=== PATIENT | female | born 1985 | race Caucasian/White ===

== ENCOUNTER 2019-05-17 11:18 | Emergency (ER) | payer BC ==
[2019-05-17 11:43] VITALS: BP 129/75; PULSE 95
--- NOTE | 2019-05-17 11:52 | EDM.PDOC ---
ED HPI GENERAL MEDICAL PROBLEM - General Chief Complaint: Lower Extremity Injury/Pain Stated Complaint: LEFT CALF PAIN AND UPPER LEG BEHIND THE KNEE Time Seen by Provider: 05/17/19 11:44 Source of Information: Reports: Patient, RN Notes Reviewed History Limitations: Reports: No Limitations - History of Present Illness INITIAL COMMENTS - FREE TEXT/NARRATIVE: 34-year-old female presents emergency department today complaint of left calf pain she is supposed to 2 weeks from tubal ligation ablation and nephrectomy. She initially reported to her surgeon this morning and was sent to the emergency department for evaluation of DVT. She has no other complaints other than the calf pain which started this morning Lower Back Pain Score (Numeric/FACES): 3 - Related Data Allergies Allergy/AdvReac Type Severity Reaction Status Date / Time amoxicillin Allergy Cannot Verified 05/17/19 11:35 Remember sulfamethoxazole Allergy Cannot Verified 05/17/19 11:35 [From Bactrim] Remember trimethoprim [From Bactrim] Allergy Cannot Verified 05/17/19 11:35 Remember Home Meds: Home Meds NK [No Known Home Meds] 05/17/19 [History] Past Medical History [employer] History: Reports: Polycystic Ovaries, , Spontaneous Musculoskeletal History: Reports: Arthritis Psychiatric History: Reports: Anxiety - Infectious Disease History Infectious Disease History: Reports: Chicken Pox - Past Surgical History Female Surgical History: Reports: Oophorectomy, Other (See Below) Other Female Surgeries/Procedures: left Social & Family History - Tobacco Use Smoking Status *Q: Never Smoker - Caffeine Use Caffeine Use: Reports: Coffee - Recreational Drug Use Recreational Drug Use: No Review of Systems - Review of Systems Review Of Systems: See Below Constitutional: Reports: No Symptoms Respiratory: Reports: No Symptoms Cardiovascular: Reports: No Symptoms GI/Abdominal: Reports: No Symptoms Musculoskeletal: Reports: Leg Pain Skin: Reports: No Symptoms ED EXAM, GENERAL - Physical Exam Exam: See Below Free Text/Narrative:: Examination of the left calf I do not appreciate any tenderness to palpation I do not appreciate any significant edema there is no erythema noted she is tender to dorsiflexion of the left foot no difficulty with ambulation Exam Limited By: No Limitations General Appearance: Alert, WD/WN, No Apparent Distress Respiratory/Chest: No Respiratory Distress Course - Vital Signs Last Recorded V/S: Last Vital Signs Temp 98.7 F 05/17/19 11:41 Pulse 95 05/17/19 11:41 Resp 14 05/17/19 11:41 BP 129/75 05/17/19 11:41 Pulse Ox 98 05/17/19 11:41 Departure - Departure Time of Disposition: 13:46 Disposition: Home, Self-Care 01 Condition: Fair Clinical Impression: Pain of left calf - Discharge Information Referrals: PCP,None [Primary Care Provider] - Forms: ED Department Discharge Additional Instructions: Use Tylenol or Motrin as needed for pain control, please followup with your primary care provider in 3-5 days if not better, please call return to the emergency department with worsening of symptoms. Sepsis Event Note - Evaluation Sepsis Screening Result: No Definite Risk - Focused Exam Vital Signs: Vital Signs Temp Pulse Resp BP Pulse Ox 05/17/19 11:41 98.7 F 95 14 129/75 98 Date Exam was Performed: 05/17/19 Time Exam was Performed: 13:45 - Assessment/Plan Plan: Assessment Acuity = acute Site and laterality = left calf pain Etiology = unknown Manifestations = none Location of injury = Home Lab values = ultrasound negative for DVT left lower extremity Plan Recommend Tylenol or Motrin as needed for pain control follow-up primary care 3 to 5 days if no improvement This note was dictated using [employer] voice recognition software please call with any questions on syntax or grammar.
--- NOTE | 2019-05-17 13:35 | CRLUS ---
INDICATION: Leg pain and swelling TECHNIQUE: Ultrasound venous duplex lower left extremity. Compression venous exam was performed using russo-scale, color Doppler, and spectral Doppler analysis. COMPARISON: None. FINDINGS: Sonographic imaging demonstrates the left common femoral, deep femoral, superficial femoral, popliteal, posterior tibial and greater saphenous and the contralateral right common femoral veins to be fully compressible with normal color Doppler blood flow. IMPRESSION: Normal left lower extremity venous ultrasound, no sign of deep venous thrombosis. Dictated by Ariel Arnold MD @ 05/17/2019 1:34:36 PM Dictated by: Ariel Arnold MD @ 05/17/2019 13:34:43 (Electronically Signed)
== END 2019-05-17 13:57 | disposition home or self-care (01) ==
LOC: JP.ED 11:18
DX: M79.662 Pain in left lower leg (principal); Z88.1 Allergy status to other antibiotic agents
CPT/HCPCS: 93971-LT; 99283-25